=== PATIENT | female | born 1990 | race Caucasian/White ===

== ENCOUNTER 2017-01-20 05:26 | Day surgery (SDC) | payer MEDICAID ==
--- NOTE | 2017-01-16 08:34 | PDGENHP ---
History and Physical - Chief Complaint Left Hip Pain - History of Present Illness 1. Bilateral~Femoroacetabular impingement (JOSE J) Cam type~(Right Side symptomatic) 2. ~~Borderline Left Hip Dysplasia (Asymptomatic) HISTORY OF PRESENT ILLNESS: Monalisais a 25 y.o.~very ~active female~who I have had the pleasure to consult on today.~I have enjoyed meeting her. She~lives in [place]. ~Monalisais unemployed (she is currently applying for disability). ~She~is single; she~has no~children. ~Monalisaenjoys horse back riding, bicycling, white water rafting, bouldering (while living [place]) . At age 19 she weighed~330 lbs and has lost 150 lb since that time. Susan's right~hip pain started a year ago, with no~recalled trauma or injury, and with no~previous complaints.~Monalisadoes not have~a known history of hip dysplasia. She has had a year of pelvic floor pain and has had a large work up including laparotomy with negative findings for endometriosis. Presentation today is of~posterior, lateral right~hip pain. ~The hip does~wake her~at night and does~click and catch on her. Sitting can be uncomfortable~for her. Monalisadoes~report suffering from lower back pain episodes which started after her hip pain. She experiences waves of pain with associated nausea, sweating anywhere from 5- 15 times a day. Monalisahas~participated in physical therapy (for pelvic floor pain)~and has~ tried other conservative measures including cortisone hip injections (November 2015 at [facility]) which only gave her 1.5 days relief however she had immediate 85% pain relief, dry needling . She~has not~received sufficient symptomatic improvement. Monalisahas~utilized medication for pain management, including NSAID and Medical Marijuana. Monalisahas used medication for 1 year. Monalisadenies issues with the right~hip. ~ Monalisaunderstands that she~has a hip and pelvis problem which should be researched and wishes to get a better understanding of her~hip status, followed by an establishment of a treatment strategy, hoping she~would be able to get back to her~well being active life. History: Past medical history: ~ None which is relevant Relevant familial history: Cancer on both sides of the family ~~~~~~~~~~~~~~~~~~~~~~~~~~~~~~~~~~~~HTN ~~~~~~~~~~~~~~~~~~~~~~~~~~~~~~~~~~~~ALS Past surgical history: No. Surgery Anesthesia Year Outcome 1 Laparoscopic Pelvic surgey General 2 Ovarian mass excision General Monalisadenies problematic issues with general anesthesia in the past. I have reviewed, verified and agree with the past medical, surgical, family and social history. Current Medications:~currently has no medications in their medication list. ALLERGIES:~has no allergies on file. Objective: Physical Examination: Monalisais 5~feet 7~inches tall and weighs~180~Lbs. Monalisais AAO x3; she~is well-nourished, in NAD. Skin is warm and dry. ~Breathing is non-labored. ~CV with RRR by pulse. Abdomen is soft, NTND. Currently, she~walks with a normal~gait. Trendelenburg sign is negative~and proprioception~is reduced, both~sides. She~presents~with mild~signs of joint laxity.~Beightons Score: 3 Lower spine examination is negative~for sciatic or femoral nerve irritation with positive~SLR on the Right~and Negative femoral stretch tests. Range of motion of the spine is normal~for flexion, extension, and rotations, with no~ associated pain. Upper T-Spine tenderness over the spinous process, L-Spine paraspinal tenderness. Strength, Sensation and pulses are normal - bilaterally Ankles and knees exams are normal~and no~mal-alignment is evident. She~has~right~0.5~cm short leg length discrepancy. Thigh circumference is symmetric~with no evidence for muscle atrophy~on both~ sides. Hip ROM (degrees): FL ER At 90~hip FL IR At 90~hip FL AB AD EX IR Neutral hip ER Neutral hip R 105 55 10 45 10 5 45 45 L 105 55 10 45 5 5 45 50 Specific hip and pelvis tests: Quadrant TEA Roll Add. Longus R +++ +++ Negative +++ L + + Negative +++ Glut. Med ITB Pos. Imp R +++ 5/5 strength Negative 5/5 strength Negative L Negative 5/5 strength Negative 5/5 strength Negative Squeeze test measured normal Bony Symphysis pubis is painful~to touch while concentric activity of the rectus abdominis, does not~produce pain at its insertion. Ilio Psos specific tests are negative for pain during cycling for both hips~and no snap Anterior~capsule tenderness bilaterally R>L Greater trochanteric burse is pain free~on both hips. Piriformis tests: FAIR is negative, with no~local signs of neuritis related to sciatic nerve. SIJs examination is produces pain on right side~with normal~TEA in relation and local tenderness. Hamstrings~tests are negative~functional contraction and~positive~tendinopathy on the Right On a daily basis, the following percentages reflect Susan's overall total pain : Deep hip: 80% Add Longus: 10% Hamstrin% Imaging: Radiology studies which I~have personally reviewed, analyzed and measured are below: XR: AP of the hip and pelvis: Performed in a good~technique Coccyx to pubic symphysis distance 2~cm. 6 degree~caudal [place]~Lines are preserved. Minimal~Pathological signs are seen in the Symphysis Pubis. Minimal~Pathological signs are seen at the Ischial~tuberosity. ~ Specific measurements show: NSA~ LCE Sourcil~Angle Sharp's angle Lat. Cam Lat. Pincer C.Over~sign Head~Coverage % ATDmm R N 31 3 40 - - - 80 N L N 22 10 43 - - 12-1 70 N Pos. wall sign ISS NAD ~~Dysplasia Comments R + Negative 18.6~mm - L + Negative 11.6~mm ++ Sclerosis Sup. Lat. OA Cysts Joint Space-WBZ Joint Space-Medial R Negative Negative Negative 5.8~mm 4.8~mm L Negative Negative Negative 6.6~mm 4.8~mm X Table lateral: Anterior cam lesion is seen Alpha Angle: ~ Right sub optimal XR to assess Alpha accurately, will base off 3D-CT Left 70~degrees MRI shows: minimal hypertrophy of the labrum in right hip with labral tear Impression and plan:~ Susan~is a 25 y.o.~active female~suffering from symptomatic right~hip pain due to Right cam type JOSE J with labral tear causing significant disability to her ~and altering~her~sport and life activities. Physical examination, imaging, and her~story correspond with the diagnosis mentioned above. I explained that femoroacetabular impingement (JOSE J) arises due to a bony or soft tissue conflict between the femur (ball) and acetabulum (socket) caused by an abnormality in the shape of the hip joint. Over time, repetitive impingement can result in damage to the labrum and adjacent surface cartilage within the socket, ultimately giving rise to progressive osteoarthritis of the hip. I explained that although a labral tear can be a source of pain, it is rarely the root of the problem and typically occurs secondary to an underlying abnormality in the shape and mechanics of the hip joint. ~ I reviewed conservative treatment options for JOSE J including activity modification to avoid positions of impingement, physical therapy, non-steroidal anti-inflammatory medications, and various injections (corticosteroid and PRP) aimed at reducing inflammation in the hip joint or/and preventing dynamic impingement. PRP injections may promote healing and reduce symptoms in certain cases but it will not repair chronically damaged tissue. Although these measures may help to buy time~and reduce current level of symptoms, they are not a definitive solution to the problem given the underlying abnormality in the shape of the hip joint. Patients who have failed conservative management and continue to experience symptoms are candidates for hip arthroscopy, a minimally invasive surgery that can definitively address the underlying problem. Hip arthroscopy typically includes treating the labrum with either debridement, repair, or reconstruction of the torn labrum; as well as addressing the underlying abnormalities by restoring the normal shape to the hip joint. ~If the cartilage is damaged a Microfracture~surgical procedure may also be necessary to help stimulate the growth of fibrocartilage. ~If a patient requires a labral reconstruction or a Microfracture, the initial rehabilitation from the surgery may take longer, but the half-way results are typically favorable. I reviewed the technical aspects of hip arthroscopy including risks, benefits, and expected course of recovery. Susan~understands that hip arthroscopy is a minimally invasive outpatient procedure carried out through small incisions on the outer aspect of the hip joint. During surgery, the labral tear will be identified and either debrided or repaired using bone anchors and suture material. Additionally, any excessive bone will be removed with a high-speed leonides to reshape the hip joint and restore normal anatomy. Risks include infection, bleeding, injury to nearby nerves or vessels, stiffness, persistent pain, instability, venous thromboembolic disease, and traction related complications including temporary foot numbness. Rarely, revision surgery may be required to address these problems. Overall recovery takes approximately 3 ~ 6 months depending on the extent of damage and degree of repair. In the event that the labral tissue quality is inadequate for successful repair and healing, Monalisaunderstands that a labral reconstruction will be performed. This procedure entails placing a cadaver tissue graft within the hip joint and stabilizing it with bone anchors to build a new labrum. The overall recovery time for labral reconstruction is similar to that of labral repair, although the surgical procedure takes longer to perform. Monalisawill review the info presented. In order to obtain more detailed information regarding the alignment, orientation, and shape of the bony hip and pelvis I will order a CT scan to be performed. The results of the CT scan, including femoral torsion and acetabular version measured values and 3D images, will aid me in deciding on the best treatment strategy and surgical pre-planning. Monalisawill talk with our rn surgical about possible surgery dates. Monalisais happy with this plan. I have also supplied her~with handouts, outlining the expected surgical treatment and rehab involved. I wish~Monalisaall the best, ~~ Juan Melgar [facility] History Information - Allergies/Home Medication List Allergies/Adverse Reactions: No Known Allergies Allergy (Verified 12/19/16 11:35) Home Medications: Norethindrone Acetate [Aygestin 5mg (RX)] 5 mg PO DAILY 12/19/16 [Last Taken Unknown] buPROPion XL [Wellbutrin Xl] 300 mg PO DAILY 12/19/16 [Last Taken Unknown] Levonorgestrel-Ethin Estradiol [Lessina] 1 each PO DAILY 01/14/17 [Last Taken Unknown] Melatonin [Melatonin 3 MG (*)] 3 mg PO HS PRN 01/14/17 [Last Taken Unknown] I have personally reviewed and updated: medical history - Social History Smoking Status: Light smoker Review of Systems Review of Systems: Physical Exam Physical Exam:
[2017-01-20] MEDS ORDERED: ceFAZolin 2 GM/DEXTROSE 100 ML IV ONE (05:34)
[2017-01-20] MEDS ORDERED: PREGABALIN 150 MG CAP PO ONE (05:34)
[2017-01-20] MEDS ORDERED: ACETAMINOPHEN 500 MG TAB PO ONE (05:34)
[2017-01-20] MEDS ORDERED: LIDOCAINE 1% 2 ML INJ ID PRN (06:51)
[2017-01-20] MEDS ORDERED: LR 1,000 ML IV ONE (06:51)
[2017-01-20] MEDS ORDERED: BUPIVACAINE 0.25% 30 ML SDV ONE (07:04)
[2017-01-20] MEDS ORDERED: MIDAZOLAM 2 MG/2 ML VIAL IVP ONE (07:12)
[2017-01-20] MEDS ORDERED: SCOPOLAMINE HYDROBROMIDE 1 MG/3 DAYS PATCH TD ONE (07:12)
--- NOTE | 2017-01-20 07:14 | PDANEPAE ---
ANE History of Present Illness Patient presents for L hip scope ANE Past Medical History - Cardiovascular History Hx Hypertension: No Hx Arrhythmias: No Hx Chest Pain: No Hx Coronary Artery / Peripheral Vascular Disease: No Hx CHF / Valvular Disease: No Hx Palpitations: No - Pulmonary History Hx COPD: No Hx Asthma/Reactive Airway Disease: Yes Hx Recent Upper Respiratory Infection: No Hx Oxygen in Use at Home: No Hx Sleep Apnea: No Sleep Apnea Screening Result - Last Documented: Negative Pulmonary History Comment: EXERCISE INDUCED ASTHMA IN PAST - Neurologic History Hx Cerebrovascular Accident: No Hx Seizures: No Hx Dementia: No - Endocrine History Hx Diabetes: No - Renal History Hx Renal Disorders: No - Liver History Hx Hepatic Disorders: No - Neurological & Psychiatric Hx Hx Neurological and Psychiatric Disorders: No - Cancer History Hx Cancer: No - Congenital Disorder History Hx Congenital Disorders: No - GI History Hx Gastrointestinal Disorders: No - Other Health History Other Health History: wears glasses - Chronic Pain History Chronic Pain: Yes (left hip pain) - Surgical History Prior Surgeries: 01/20/17 left hip arthroscopy and labral repair with Amna-Kp. 04/09/16 right hip arthroscopy and labral repair with Amna-Kp. WISDOM TEETH. TONSILLECTOMY. SALPINGO-OOPHERECTOMY L. LAPAROSCOPIC OVARIAN PROC ANE Review of Systems Review of Systems: - Exercise capacity METS (RN): 4 METS ANE Patient History - Allergies Allergies/Adverse Reactions: No Known Allergies Allergy (Verified 12/19/16 11:35) - Home Medications Home medications: home medication list seen and reviewed Home Medications: Norethindrone Acetate [Aygestin 5mg (RX)] 5 mg PO DAILY 12/19/16 [Last Taken Unknown] buPROPion XL [Wellbutrin Xl] 300 mg PO DAILY 12/19/16 [Last Taken Unknown] Levonorgestrel-Ethin Estradiol [Lessina] 1 each PO DAILY 01/14/17 [Last Taken Unknown] Melatonin [Melatonin 3 MG (*)] 3 mg PO HS PRN 01/14/17 [Last Taken Unknown] - NPO status NPO Status: no food or drink >8 hours NPO Since - Liquids (Date): 01/19/17 NPO Since - Liquids (Time): 20:00 NPO Since - Solids (Date): 01/19/17 NPO Since - Solids (Time): 19:00 - Anes Hx Anes Hx: no prior problems - Smoking Hx Smoking Status: Light smoker - Family Anes Hx Family Hx Anesthesia Complications: none ANE Labs/Vital Signs - Vital Signs Blood Pressure: 105/57 Heart Rate: 105 Respiratory Rate: 16 O2 Sat (%): 96 Height: 170.18 cm Weight: 77.111 kg ANE Physical Exam - Airway Neck exam: FROM Mallampati Score: Class 2 Mouth exam: normal dental/mouth exam - Pulmonary Pulmonary: no respiratory distress - Cardiovascular Cardiovascular: regular rate and rhythym - ASA Status ASA Status: II ANE Anesthesia Plan Anesthesia Plan: general endotracheal anesthesia (RBA discussed)
[2017-01-20] MEDS ORDERED: fentaNYL 100 MCG/2 ML INJ ONE ×5 (07:18→13:20)
[2017-01-20] MEDS ORDERED: PROPOFOL 200 MG/20 ML VIAL ONE (07:19)
[2017-01-20] MEDS ORDERED: LIDOCAINE 2% 5 ML SDV ONE (07:19)
[2017-01-20] MEDS ORDERED: ROCURONIUM 50 MG/5 ML VIAL ONE (07:19)
[2017-01-20] MEDS ORDERED: PROPOFOL/EMULSION 500 MG/50 ML BOTTLE IV ONE ×2 (07:23→08:38)
[2017-01-20] MEDS ORDERED: DEXAMETHASONE 4 MG/ML VIAL ONE (08:12)
[2017-01-20] MEDS ORDERED: ONDANSETRON 4 MG/2 ML VIAL ONE (08:13)
[2017-01-20] MEDS ORDERED: HYDROmorphONE/DILAUDID 2 MG/ML INJ ONE (08:31)
[2017-01-20] MEDS ORDERED: EPINEPHrine 30 MG/30 ML MDV ONE (09:21)
[2017-01-20] MEDS ORDERED: LR 500 ML IV PRN (10:23)
[2017-01-20] MEDS ORDERED: ONDANSETRON 4 MG/2 ML VIAL IVP PRN (10:23)
[2017-01-20] MEDS ORDERED: NALOXONE HCL 0.4 MG/ML INJ IVP PRN (10:23)
[2017-01-20] MEDS ORDERED: OXYCODONE/APAP 5/325 TAB PO PRN (10:23)
[2017-01-20] MEDS ORDERED: HYDROCODONE/APAP 5/325 TAB PO PRN (10:23)
[2017-01-20] MEDS ORDERED: PROMETHAZINE HCL 25 MG/ML INJ IVP PRN (10:23)
[2017-01-20] MEDS ORDERED: HYDROmorphONE/DILAUDID 1 MG/ML INJ ONE (11:20)
[2017-01-20] MEDS: fentaNYL 100 MCG/2 ML INJ IVP PRN ×5 (11:25→13:23)
[2017-01-20] MEDS: HYDROmorphONE/DILAUDID 1 MG/ML INJ IVP PRN ×3 (11:26→11:55)
--- NOTE | 2017-01-20 11:50 | POSTANESTH ---
Post Anesthetic Evaluation Cardiovascular Status: Normal, Stable Respiratory Status: Normal, Stable Level of Consciousness/Mental Status: Can Participate in Eval Pain Control: Adequate, Prn Tx Ordered Nausea/Vomiting Control: Adequate, Prn Tx Ordered Complications Possibly Related to Anesthesia: None Noted
[2017-01-20] MEDS ORDERED: OXYCODONE/APAP 5/325 TAB ONE (12:04)
[2017-01-20 12:14] VITALS: PULSE 77
[2017-01-20] MEDS ORDERED: HYDROmorphONE/DILAUDID 2 MG TAB PO PRN (13:46)
[2017-01-20 13:48] VITALS: TEMP 97.9; O2SAT 94
[2017-01-20] MEDS ORDERED: HYDROmorphONE/DILAUDID 2 MG TAB ONE (13:51)
[2017-01-20 14:06] VITALS: BP 113/62; RESP 15
[2017-01-21] MEDS ORDERED: PATCH REMOVAL 1 EA PATCH TD ONE (09:00)
== END 2017-01-20 14:14 | disposition home or self-care (01) ==
LOC: FSGY 05:26
PROVIDERS: ATTEND Orthopaedic Surgery Sports Medicine
PROC: 0SQB4ZZ Repair Left Hip Joint, Percutaneous Endoscopic Approach (ICD-10-PCS; principal; 2017-01-20 11:30)
DX: M25.851 Other specified joint disorders, right hip (principal); M25.852 Other specified joint disorders, left hip; Z72.0 Tobacco use; J45.909 Unspecified asthma, uncomplicated
CPT/HCPCS: 29914; 76001; C1769; C1713; J0171; J0690; J1100; J1170; J2250; J2405; J2704; J3010

== ENCOUNTER 2017-01-27 06:42 | Inpatient (IN) | payer MEDICAID ==
--- NOTE | 2017-01-23 16:02 | PDGENHP ---
History and Physical - Chief Complaint Left Hip Pain - History of Present Illness 1. Bilateral~Femoroacetabular impingement (JOSE J) Cam type~(Right Side symptomatic) 2. ~~Borderline Left Hip Dysplasia (Asymptomatic) HISTORY OF PRESENT ILLNESS: Monalisais a 25 y.o.~very ~active female~who I have had the pleasure to consult on today.~I have enjoyed meeting her. She~lives in [place]. ~Monalisais unemployed (she is currently applying for disability). ~She~is single; she~has no~children. ~Monalisaenjoys horse back riding, bicycling, white water rafting, bouldering (while living [place]) . At age 19 she weighed~330 lbs and has lost 150 lb since that time. Susan's right~hip pain started a year ago, with no~recalled trauma or injury, and with no~previous complaints.~Monalisadoes not have~a known history of hip dysplasia. She has had a year of pelvic floor pain and has had a large work up including laparotomy with negative findings for endometriosis. Presentation today is of~posterior, lateral right~hip pain. ~The hip does~wake her~at night and does~click and catch on her. Sitting can be uncomfortable~for her. Monalisadoes~report suffering from lower back pain episodes which started after her hip pain. She experiences waves of pain with associated nausea, sweating anywhere from 5- 15 times a day. Monalisahas~participated in physical therapy (for pelvic floor pain)~and has~ tried other conservative measures including cortisone hip injections (November 2015 at [facility]) which only gave her 1.5 days relief however she had immediate 85% pain relief, dry needling . She~has not~received sufficient symptomatic improvement. Monalisahas~utilized medication for pain management, including NSAID and Medical Marijuana. Monalisahas used medication for 1 year. Monalisadenies issues with the right~hip. ~ Monalisaunderstands that she~has a hip and pelvis problem which should be researched and wishes to get a better understanding of her~hip status, followed by an establishment of a treatment strategy, hoping she~would be able to get back to her~well being active life. History: Past medical history: ~ None which is relevant Relevant familial history: Cancer on both sides of the family ~~~~~~~~~~~~~~~~~~~~~~~~~~~~~~~~~~~~HTN ~~~~~~~~~~~~~~~~~~~~~~~~~~~~~~~~~~~~ALS Past surgical history: No. Surgery Anesthesia Year Outcome 1 Laparoscopic Pelvic surgey General 2 Ovarian mass excision General Monalisadenies problematic issues with general anesthesia in the past. I have reviewed, verified and agree with the past medical, surgical, family and social history. Current Medications:~currently has no medications in their medication list. ALLERGIES:~has no allergies on file. Objective: Physical Examination: Monalisais 5~feet 7~inches tall and weighs~180~Lbs. Monalisais AAO x3; she~is well-nourished, in NAD. Skin is warm and dry. ~Breathing is non-labored. ~CV with RRR by pulse. Abdomen is soft, NTND. Currently, she~walks with a normal~gait. Trendelenburg sign is negative~and proprioception~is reduced, both~sides. She~presents~with mild~signs of joint laxity.~Beightons Score: 3 Lower spine examination is negative~for sciatic or femoral nerve irritation with positive~SLR on the Right~and Negative femoral stretch tests. Range of motion of the spine is normal~for flexion, extension, and rotations, with no~ associated pain. Upper T-Spine tenderness over the spinous process, L-Spine paraspinal tenderness. Strength, Sensation and pulses are normal - bilaterally Ankles and knees exams are normal~and no~mal-alignment is evident. She~has~right~0.5~cm short leg length discrepancy. Thigh circumference is symmetric~with no evidence for muscle atrophy~on both~ sides. Hip ROM (degrees): FL ER At 90~hip FL IR At 90~hip FL AB AD EX IR Neutral hip ER Neutral hip R 105 55 10 45 10 5 45 45 L 105 55 10 45 5 5 45 50 Specific hip and pelvis tests: Quadrant TEA Roll Add. Longus R +++ +++ Negative +++ L + + Negative +++ Glut. Med ITB Pos. Imp R +++ 5/5 strength Negative 5/5 strength Negative L Negative 5/5 strength Negative 5/5 strength Negative Squeeze test measured normal Bony Symphysis pubis is painful~to touch while concentric activity of the rectus abdominis, does not~produce pain at its insertion. Ilio Psos specific tests are negative for pain during cycling for both hips~and no snap Anterior~capsule tenderness bilaterally R>L Greater trochanteric burse is pain free~on both hips. Piriformis tests: FAIR is negative, with no~local signs of neuritis related to sciatic nerve. SIJs examination is produces pain on right side~with normal~TEA in relation and local tenderness. Hamstrings~tests are negative~functional contraction and~positive~tendinopathy on the Right On a daily basis, the following percentages reflect Susan's overall total pain : Deep hip: 80% Add Longus: 10% Hamstrin% Imaging: Radiology studies which I~have personally reviewed, analyzed and measured are below: XR: AP of the hip and pelvis: Performed in a good~technique Coccyx to pubic symphysis distance 2~cm. 6 degree~caudal [place]~Lines are preserved. Minimal~Pathological signs are seen in the Symphysis Pubis. Minimal~Pathological signs are seen at the Ischial~tuberosity. ~ Specific measurements show: NSA~ LCE Sourcil~Angle Sharp's angle Lat. Cam Lat. Pincer C.Over~sign Head~Coverage % ATDmm R N 31 3 40 - - - 80 N L N 22 10 43 - - 12-1 70 N Pos. wall sign ISS NAD ~~Dysplasia Comments R + Negative 18.6~mm - L + Negative 11.6~mm ++ Sclerosis Sup. Lat. OA Cysts Joint Space-WBZ Joint Space-Medial R Negative Negative Negative 5.8~mm 4.8~mm L Negative Negative Negative 6.6~mm 4.8~mm X Table lateral: Anterior cam lesion is seen Alpha Angle: ~ Right sub optimal XR to assess Alpha accurately, will base off 3D-CT Left 70~degrees MRI shows: minimal hypertrophy of the labrum in right hip with labral tear Impression and plan:~ Susan~is a 25 y.o.~active female~suffering from symptomatic right~hip pain due to Right cam type JOSE J with labral tear causing significant disability to her ~and altering~her~sport and life activities. Physical examination, imaging, and her~story correspond with the diagnosis mentioned above. I explained that femoroacetabular impingement (JOSE J) arises due to a bony or soft tissue conflict between the femur (ball) and acetabulum (socket) caused by an abnormality in the shape of the hip joint. Over time, repetitive impingement can result in damage to the labrum and adjacent surface cartilage within the socket, ultimately giving rise to progressive osteoarthritis of the hip. I explained that although a labral tear can be a source of pain, it is rarely the root of the problem and typically occurs secondary to an underlying abnormality in the shape and mechanics of the hip joint. ~ I reviewed conservative treatment options for JOSE J including activity modification to avoid positions of impingement, physical therapy, non-steroidal anti-inflammatory medications, and various injections (corticosteroid and PRP) aimed at reducing inflammation in the hip joint or/and preventing dynamic impingement. PRP injections may promote healing and reduce symptoms in certain cases but it will not repair chronically damaged tissue. Although these measures may help to buy time~and reduce current level of symptoms, they are not a definitive solution to the problem given the underlying abnormality in the shape of the hip joint. Patients who have failed conservative management and continue to experience symptoms are candidates for hip arthroscopy, a minimally invasive surgery that can definitively address the underlying problem. Hip arthroscopy typically includes treating the labrum with either debridement, repair, or reconstruction of the torn labrum; as well as addressing the underlying abnormalities by restoring the normal shape to the hip joint. ~If the cartilage is damaged a Microfracture~surgical procedure may also be necessary to help stimulate the growth of fibrocartilage. ~If a patient requires a labral reconstruction or a Microfracture, the initial rehabilitation from the surgery may take longer, but the [facility] results are typically favorable. I reviewed the technical aspects of hip arthroscopy including risks, benefits, and expected course of recovery. Susan~understands that hip arthroscopy is a minimally invasive outpatient procedure carried out through small incisions on the outer aspect of the hip joint. During surgery, the labral tear will be identified and either debrided or repaired using bone anchors and suture material. Additionally, any excessive bone will be removed with a high-speed leonides to reshape the hip joint and restore normal anatomy. Risks include infection, bleeding, injury to nearby nerves or vessels, stiffness, persistent pain, instability, venous thromboembolic disease, and traction related complications including temporary foot numbness. Rarely, revision surgery may be required to address these problems. Overall recovery takes approximately 3 ~ 6 months depending on the extent of damage and degree of repair. In the event that the labral tissue quality is inadequate for successful repair and healing, Monalisaunderstands that a labral reconstruction will be performed. This procedure entails placing a cadaver tissue graft within the hip joint and stabilizing it with bone anchors to build a new labrum. The overall recovery time for labral reconstruction is similar to that of labral repair, although the surgical procedure takes longer to perform. Monalisawill review the info presented. In order to obtain more detailed information regarding the alignment, orientation, and shape of the bony hip and pelvis I will order a CT scan to be performed. The results of the CT scan, including femoral torsion and acetabular version measured values and 3D images, will aid me in deciding on the best treatment strategy and surgical pre-planning. Monalisawill talk with our surgical oncologist about possible surgery dates. Monalisais happy with this plan. I have also supplied her~with handouts, outlining the expected surgical treatment and rehab involved. I wish~Monalisaall the best, ~~ Juan Melgar, [facility] History Information - Allergies/Home Medication List Allergies/Adverse Reactions: No Known Allergies Allergy (Verified 12/19/16 11:35) Home Medications: Norethindrone Acetate [Aygestin] 5 mg PO DAILY 12/19/16 [Last Taken Unknown] buPROPion XL [Wellbutrin 150mg XL] 300 mg PO DAILY 12/19/16 [Last Taken Unknown] Levonorgestrel-Ethin Estradiol [Lessina-28 Tablet] 1 each PO DAILY 01/14/17 [ Last Taken Unknown] Melatonin [Melatonin 3 MG (*)] 3 mg PO HS PRN 01/14/17 [Last Taken Unknown] I have personally reviewed and updated: medical history - Social History Smoking Status: Light smoker Review of Systems Review of Systems: Physical Exam Physical Exam:
[2017-01-27] MEDS ORDERED: LIDOCAINE 1% 2 ML INJ ID PRN (07:34)
[2017-01-27] MEDS ORDERED: LR 1,000 ML IV ONE (07:34)
[2017-01-27] MEDS ORDERED: MIDAZOLAM 2 MG/2 ML VIAL IVP ONE (07:54)
[2017-01-27] MEDS ORDERED: SCOPOLAMINE HYDROBROMIDE 1 MG/3 DAYS PATCH TD ONE ×2 (08:17→08:34)
--- NOTE | 2017-01-27 08:18 | PDANEPAE ---
ANE Past Medical History - Cardiovascular History Hx Hypertension: No Hx Arrhythmias: No Hx Chest Pain: No Hx Coronary Artery / Peripheral Vascular Disease: No Hx CHF / Valvular Disease: No Hx Palpitations: No - Pulmonary History Hx COPD: No Hx Asthma/Reactive Airway Disease: Yes Hx Recent Upper Respiratory Infection: No Hx Oxygen in Use at Home: No Hx Sleep Apnea: No Sleep Apnea Screening Result - Last Documented: Negative Pulmonary History Comment: EXERCISE INDUCED ASTHMA IN PAST - Neurologic History Hx Cerebrovascular Accident: No Hx Seizures: No Hx Dementia: No - Endocrine History Hx Diabetes: No Hypothyroid: No Hyperthyroid: No Obesity: no - Renal History Hx Renal Disorders: No - Liver History Hx Hepatic Disorders: No - Neurological & Psychiatric Hx Hx Neurological and Psychiatric Disorders: No - Cancer History Hx Cancer: No - Congenital Disorder History Hx Congenital Disorders: No - GI History GERD: no Hx Gastrointestinal Disorders: No - Other Health History Other Health History: wears glasses - Chronic Pain History Chronic Pain: Yes (left hip pain) - Surgical History Prior Surgeries: 01/20/17 left hip arthroscopy and labral repair with Amna-Kp. 04/09/16 right hip arthroscopy and labral repair with Amna-Kp. WISDOM TEETH. TONSILLECTOMY. SALPINGO-OOPHERECTOMY L. LAPAROSCOPIC OVARIAN PROC ANE Review of Systems Review of Systems: - Exercise capacity METS (RN): 4 METS ANE Patient History - Allergies Allergies/Adverse Reactions: No Known Allergies Allergy (Verified 12/19/16 11:35) - Home Medications Home Medications: Norethindrone Acetate [Aygestin] 5 mg PO DAILY 12/19/16 [Last Taken Unknown] buPROPion XL [Wellbutrin 150mg XL] 300 mg PO DAILY 12/19/16 [Last Taken Unknown] Levonorgestrel-Ethin Estradiol [Lessina-28 Tablet] 1 each PO DAILY 01/14/17 [ Last Taken Unknown] Melatonin [Melatonin 3 MG (*)] 3 mg PO HS PRN 01/14/17 [Last Taken Unknown] - NPO status NPO Since - Liquids (Date): 01/26/17 NPO Since - Liquids (Time): 21:00 NPO Since - Solids (Date): 01/26/17 NPO Since - Solids (Time): 21:00 - Anes Hx Anes Hx: post operative nausea - Smoking Hx Smoking Status: Light smoker - Family Anes Hx Family Anes Hx: neg - N/A Family Hx Anesthesia Complications: none ANE Labs/Vital Signs - Vital Signs Blood Pressure: 123/59 Heart Rate: 84 Respiratory Rate: 16 O2 Sat (%): 96 Height: 170.18 cm Weight: 77.111 kg ANE Physical Exam - Airway Neck exam: FROM Mallampati Score: Class 2 Mouth exam: normal dental/mouth exam - Pulmonary Pulmonary: no respiratory distress - Cardiovascular Cardiovascular: regular rate and rhythym - ASA Status ASA Status: II ANE Anesthesia Plan Anesthesia Plan: general endotracheal anesthesia (Epidural for POPC)
[2017-01-27] MEDS ORDERED: REMIFENTANIL HCL 1 MG VIAL ONE ×2 (08:19→10:53)
[2017-01-27] MEDS ORDERED: DEXAMETHASONE 4 MG/ML VIAL ONE (08:19)
[2017-01-27] MEDS ORDERED: PROPOFOL/EMULSION 500 MG/50 ML BOTTLE IV ONE ×2 (08:19→10:53)
[2017-01-27] MEDS ORDERED: PROPOFOL 200 MG/20 ML VIAL ONE (08:19)
[2017-01-27] MEDS ORDERED: ROCURONIUM 50 MG/5 ML VIAL ONE ×3 (08:19→10:50)
[2017-01-27] MEDS ORDERED: ONDANSETRON 4 MG/2 ML VIAL ONE (08:19)
[2017-01-27] MEDS ORDERED: fentaNYL 100 MCG/2 ML INJ ONE ×3 (08:19→13:19)
[2017-01-27] MEDS ORDERED: LIDOCAINE 2% 5 ML SDV ONE (08:20)
[2017-01-27] MEDS: SCOPOLAMINE HYDROBROMIDE 1 MG/3 DAYS PATCH TD SCH (08:20)
[2017-01-27] MEDS ORDERED: ceFAZolin 2 GM/DEXTROSE 100 ML IV ONE (08:34)
[2017-01-27] MEDS ORDERED: TRANEXAMIC ACID 1,000 MG in NS 100 ML IV ONE (08:34)
[2017-01-27] MEDS ORDERED: MELATONIN 3 MG TAB PO PRN (08:35)
[2017-01-27] MEDS ORDERED: PHENYLEPHRINE HCL 100 MCG/ML SYR ONE (08:56)
[2017-01-27] MEDS ORDERED: CEFAZOLIN 2 GM/DEXTROSE/100 ML BAG IV ONE (08:59)
[2017-01-27] MEDS ORDERED: ONDANSETRON 4 MG/2 ML VIAL IVP PRN ×2 (09:59→15:08)
[2017-01-27] MEDS ORDERED: PROMETHAZINE HCL 25 MG/ML INJ IVP PRN (09:59)
[2017-01-27] MEDS ORDERED: D5W LR 500 ML IV PRN (09:59)
[2017-01-27] MEDS ORDERED: NALOXONE HCL 0.4 MG/ML INJ IVP PRN ×2 (09:59→11:00)
[2017-01-27] MEDS ORDERED: MEPERIDINE 25 MG/ML SYR IVP PRN (09:59)
[2017-01-27] MEDS ORDERED: NARCOTIC DRIP BAG-TOTAL ALL TYPES EP PRN (11:00)
[2017-01-27] MEDS ORDERED: diphenhydrAMINE 25 MG CAP PO PRN (11:00)
[2017-01-27] MEDS ORDERED: SUGAMMADEX SODIUM 200 MG/2 ML VIAL IVP ONE (12:38)
[2017-01-27] MEDS ORDERED: ROPIVACAINE HCL 150 MG/30 ML INJ ONE (13:19)
[2017-01-27] MEDS: HYDROmorph 10MCG/ML&BUP 0.1% in 100ML NS EP SCH ×2 (13:55→21:29)
[2017-01-27] MEDS: buPROPion XL 150 MG TAB PO SCH (14:56)
[2017-01-27] MEDS: LEVONORGESTREL ETHIN ESTRADIOL PO SCH (14:57)
[2017-01-27] MEDS: NORETHINDRONE ACET 5 MG TAB PO SCH (14:57)
[2017-01-27] MEDS ORDERED: POLYETHYLENE GLYCOL 3350 17 GM PKT PO PRN (15:08)
[2017-01-27] MEDS ORDERED: LACTULOSE 20 GM/30 ML UDCUP PO PRN (15:08)
[2017-01-27] MEDS ORDERED: ONDANSETRON DISINTEGRATING 4 MG TAB PO PRN (15:08)
[2017-01-27] MEDS ORDERED: BISACODYL 10 MG SUPP PR PRN (15:08)
[2017-01-27] MEDS: ONDANSETRON 4 MG/2 ML VIAL IVP PRN ×2 (15:42→20:50)
[2017-01-27] MEDS: ACETAMINOPHEN 325 MG TAB PO PRN (17:34)
[2017-01-27] MEDS: DIAZEPAM 2 MG TAB PO PRN (17:34)
[2017-01-27] MEDS: SENNOSIDES/DOCUSATE SODIUM TAB PO SCH (20:50)
--- NOTE | 2017-01-27 21:33 | SUROPNOTE ---
ENRIKE Operative Report - Surgery Surgery was performed at [facility] 01/27/17 Diagnosis: Left 1. Hip Acetabular Dysplasia Operation: Left~Gena Acetabular Osteotomy (PHANI) Surgeon: Ge Alexandra MD [employer] Hand:~~Dane FIGUEROA Anesthetic: General + epidural Procedure: General anesthetic. Antibiotics given. Cell saver in use. Fluoroscopy. Phase 1: Position lateral, diagonal skin incision between ischial tuberosity and greater trochanter as for posterior hip approach. Blunt split of glut max fibers. Identification of fat pad overlying sciatic nerve. Exposure of sciatic nerve under fat pad, gently retracting it away-medially to ischial tuberosity. Exposure of subcotoloid fossa proximal to short rotators. Using osteotomes and under fluoroscopy, osteotomy of subcotoloid fossa to sciatic notch proximal to ischial spine. Closure of lateral cut. Patient is turned supine. Phase 2: Skin incision just distal to ASIS. Using diathermy the iliac spine was exposed and inguinal ligament + Sartorious were retracted medially, taking the LFCN with them, protecting it. Inner ilium was dissected from iliacus muscle bluntly , with a cob and swab. Dissection continued towards lateral superior ramus pubis. Using fluoroscopy an osteotomy of lateral superior ramus, just medial to tear drop, was performed with curved fish mouth osteotome. Phase 3: Osteotomy lines of the ilium were marked with diathermy as pre planned according to XR/CT and expected correction of acatabulum. 2 Shanz screws were drilled into central acetabular fragment, corresponding with planned correction angles, in order to mobilize central acetabular fragment after osteotomy is complete. ~Iliac osteotomy was performed with reciprocating saw and the main acetabular fragment was moved to realign weight bearing position. After confirmation of correction using fluoroscopy in AP and false profile planes, the fragment was fixed with 2 - 5.5mm ~full threaded~screws~and 1 - 4mm~~full threaded~screw. Inguinal ligament and Sartorious were attached back to ASIS through drill holes. Incision was closed according to soft tissue layers. Skin was closed with subdermal Monocryl. Final fluoro shots were obtained to confirm position/correction. After surgery Susan~moved both lower limbs and had no NV motor compromise. Evaluation under anesthesia: IR at 90 degrees hip flexion prior to PHANI was 20~degrees and after PHANI was 15~ degrees. Bleedin~cc into cell-saver, 135~of blood products were returned to patient. Post op instructions: 1. Non~weight bearing crutches for 2~weeks, full with crutches thereafter 2. Epidural analgesia for 24-48 hours 3. Continuous SCD 4. Aspirin 81 mg X1 day once Epidural is discontinued 5. Avoid hip flexion past 90 and hip External rotation. 6. PT according to my recommendations at follow up visit Kind regards, Dr. Ge Alexandra
[2017-01-28 05:30] LABS: HEMATOCRIT 33.4 % (38.0-47.0); HEMOGLOBIN 10.8 g/dL (12.6-16.3); MEAN CELL HEMOGLOBIN 31.8 pg (27.9-34.1); MEAN CELL HEMOGLOBIN CONCENTR. 32.3 g/dL (32.4-36.7); MEAN CELL VOLUME 98.2 fL (81.5-99.8); RED BLOOD CELL COUNT 3.4 10^6/uL (4.18-5.33); RED CELL DISTRIBUTION WIDTH 13.3 % (11.5-15.2)
[2017-01-28] MEDS: HYDROmorph 10MCG/ML&BUP 0.1% in 100ML NS EP SCH (05:43)
[2017-01-28 05:58] LABS: ANION GAP 6 mEq/L (8-16); CALCIUM 8.7 mg/dL (8.5-10.4); CARBON DIOXIDE 20 mEq/l (22-31); CHLORIDE 109 mEq/L (97-110); CREATININE 0.8 mg/dL (0.6-1.0); GLOMERULAR FILTRATION RATE > 60; GLUCOSE 82 mg/dL (70-100); POTASSIUM 4.8 mEq/L (3.5-5.2); SODIUM 135 mEq/L (134-144)
[2017-01-28] MEDS: REGARDING ANTICOAG MISC SCH (08:39)
[2017-01-28] MEDS: DC NARCS MISC SCH (08:39)
[2017-01-28] MEDS: buPROPion XL 150 MG TAB PO SCH (09:59)
[2017-01-28] MEDS: SENNOSIDES/DOCUSATE SODIUM TAB PO SCH ×2 (09:59→20:00)
[2017-01-28] MEDS: LEVONORGESTREL ETHIN ESTRADIOL PO SCH (10:42)
[2017-01-28] MEDS: NORETHINDRONE ACET 5 MG TAB PO SCH (10:48)
--- NOTE | 2017-01-28 11:48 | SOAPPROG ---
SOAP Progress Note Assessment/Plan: Assessment:POD #1 s/p L PHANI performed under GA. A lumbar epidural was placed for extended POPC. Overall, pt. doing well. Plan: Will increase epidural basal rate from 6 to 10 ml/hr and change the bolus from 4 to 3 ml q15. 01/28/17 11:45 Subjective: Pt. denies N/V, pruritus. Admits LLE completely pain free. c/o 7-8/10 pain at incisional site. admits difficulty sleeping last night because of the pain. Objective: Vital Signs Temp Pulse Resp BP Pulse Ox 36.4 C 83 18 109/64 98 01/28/17 11:41 01/28/17 11:41 01/28/17 11:41 01/28/17 11:41 01/28/17 11:41 Laboratory Results 01/28/17 04:45 01/28/17 04:45 01/27/17 01/28/17 01/29/17 05:59 05:59 05:59 Intake Total 2850 Output Total 2150 Balance 700 Physical Exam - Physical Exam General Appearance: WD/WN, alert, no apparent distress Neuro/Psych: normal mood/affect ICD10 Worksheet Patient Problems: Problems Problem Status Onset Pain Acute - ICD10 Problem Qualifiers (1) Pain
[2017-01-28] MEDS ORDERED: HYDROmorph 10MCG/ML&BUP 0.1% in 100ML NS EP SCH (13:00)
--- NOTE | 2017-01-28 14:03 | ASMTCMCOM ---
CM Note CM Note Notes: Pt had planned surgery for hip dysplasia, therapies to eval. CM to follow. Date Signed: 01/28/2017 02:03 PM Electronically Signed By:JAYASHREE Finch
--- NOTE | 2017-01-28 19:36 | SOAPPROG ---
SOAP Progress Note Assessment/Plan: Assessment: 1 day post op Left Periacetabular Osteotomy Plan: Start to wean down epidural tomorrow PT/OT transition to oral analgesics once epidural off Pelvis Xray on POD#3 01/28/17 19:33 Subjective: Susan had increased pain last night, anesthesia turned epidural up from 6 to 10 today and she is doing much better. She's been up to the side of bed and some ambulation with walker. She denies any cp or sob, no nausea but hasn't eaten much due to lack of appetite. Objective: Vital Signs Temp Pulse Resp BP Pulse Ox 36.9 C 102 H 16 114/62 93 01/28/17 19:22 01/28/17 19:22 01/28/17 19:22 01/28/17 19:22 01/28/17 19:22 Laboratory Results 01/28/17 04:45 01/28/17 04:45 01/27/17 01/28/17 01/29/17 05:59 05:59 05:59 Intake Total 2850 530 Output Total 2150 450 Balance 700 80 Well appearing in NAD H/H stable Left hip: dressings clean dry intact some edema NVI distally full ROM of foot and ankle ICD10 Worksheet Patient Problems: Problems Problem Status Onset Pain Acute
[2017-01-29] MEDS: ACETAMINOPHEN 325 MG TAB PO PRN ×2 (04:49→11:27)
[2017-01-29] MEDS: DIAZEPAM 2 MG TAB PO PRN ×2 (04:49→11:11)
[2017-01-29] MEDS ORDERED: HYDROmorphONE/DILAUDID 1 MG/ML INJ IVP PRN ×3 (08:08→09:10)
--- NOTE | 2017-01-29 08:28 | HOSPPROG ---
Hospitalist Progress Note Assessment/Plan: stat team called on Susan due to a pain crisis/ she is s/p a left periacetabular osteotomy. Her epidural became dislodged and wasn't working. I came by to help assess and care for her. Ordered 0.4 mg Dilaudid iv x 1. Anesthesia came by and they will aim to replace her epidural today. She is alert, oriented, crying, vss. Objective: Vital Signs Temp Pulse Resp BP Pulse Ox 36.8 C 94 14 107/60 94 01/29/17 04:00 01/29/17 06:00 01/29/17 06:00 01/29/17 06:00 01/29/17 06:00 Laboratory Results 01/28/17 04:45 01/28/17 04:45 01/28/17 01/29/17 01/30/17 05:59 05:59 05:59 Intake Total 2850 830 Output Total 2150 1100 Balance 700 -270 ICD10 Worksheet Patient Problems: Problems Problem Status Onset Pain Acute
[2017-01-29] MEDS ORDERED: HYDROmorphONE/DILAUDID 1 MG/ML INJ IVP ONE (08:30)
[2017-01-29] MEDS ORDERED: NALOXONE HCL 0.4 MG/ML INJ IVP PRN ×2 (08:53→15:28)
--- NOTE | 2017-01-29 08:59 | SOAPPROG ---
SOAP Progress Note Assessment/Plan: Assessment/PLAN: pt in severe pain POD #2 2/2 self-d/c of epidural catheter. will discuss possibility of replacing epidural vs. pain mgmt with IV meds. per patient, plan was to remove epidural later today. will manage in interim with dilaudid SUBCONTRACT ADMINISTRATOR. 01/29/17 08:59 Subjective: pt in severe pain POD #2 2/2 self-d/c of epidural catheter. will discuss possibility of replacing epidural vs. pain mgmt with IV meds. per patient, plan was to remove epidural later today. will manage in interim with SUBCONTRACT ADMINISTRATOR. Objective: Vital Signs Temp Pulse Resp BP Pulse Ox 36.8 C 94 14 107/60 94 01/29/17 04:00 01/29/17 06:00 01/29/17 06:00 01/29/17 06:00 01/29/17 06:00 Laboratory Results 01/28/17 04:45 01/28/17 04:45 01/28/17 01/29/17 01/30/17 05:59 05:59 05:59 Intake Total 2850 830 Output Total 2150 1100 Balance 700 -270 ICD10 Worksheet Patient Problems: Problems Problem Status Onset Pain Acute
[2017-01-29] MEDS ORDERED: oxyCODONE IR 15 MG TAB PO SCH (10:00)
[2017-01-29] MEDS: oxyCODONE IR 5 MG TAB PO SCH ×6 (10:49→22:09)
[2017-01-29] MEDS: HYDROmorphONE/DILAUDID 1 MG/ML INJ IVP PRN ×3 (11:00→14:33)
[2017-01-29] MEDS: buPROPion XL 150 MG TAB PO SCH (11:14)
[2017-01-29] MEDS: SENNOSIDES/DOCUSATE SODIUM TAB PO SCH ×2 (11:14→22:09)
[2017-01-29] MEDS: NORETHINDRONE ACET 5 MG TAB PO SCH (11:15)
[2017-01-29] MEDS: LEVONORGESTREL ETHIN ESTRADIOL PO SCH (11:33)
[2017-01-29] MEDS: DC NARCS MISC SCH (11:43)
[2017-01-29] MEDS: REGARDING ANTICOAG MISC SCH (11:43)
[2017-01-29] MEDS ORDERED: DIAZEPAM 10 MG/2 ML SYR ONE (14:35)
[2017-01-29] MEDS: DIAZEPAM 10 MG/2 ML SYR IVP PRN ×2 (14:49→15:32)
[2017-01-29] MEDS ORDERED: HYDROmorphONE/DILAUDID 6 MG/30 ML PCA IV PRN (15:28)
[2017-01-29] MEDS: ASPIRIN EC 81 MG TAB PO SCH (16:16)
[2017-01-29] MEDS ORDERED: BUPIVACAINE 0.25% 30 ML SDV ONE (20:04)
--- NOTE | 2017-01-29 20:25 | PDANEPAE ---
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 Dr. Alexandra requests pt eval for possible DEIRDRE placement ANE Past Medical History - Cardiovascular History Hx Hypertension: No Hx Arrhythmias: No Hx Chest Pain: No Hx Coronary Artery / Peripheral Vascular Disease: No Hx CHF / Valvular Disease: No Hx Palpitations: No - Pulmonary History Hx COPD: No Hx Asthma/Reactive Airway Disease: Yes Hx Recent Upper Respiratory Infection: No Hx Oxygen in Use at Home: No Hx Sleep Apnea: No Sleep Apnea Screening Result - Last Documented: Negative Pulmonary History Comment: EXERCISE INDUCED ASTHMA IN PAST - Neurologic History Hx Cerebrovascular Accident: No Hx Seizures: No Hx Dementia: No - Endocrine History Hx Diabetes: No Hypothyroid: No Hyperthyroid: No Obesity: no - Renal History Hx Renal Disorders: No - Liver History Hx Hepatic Disorders: No - Neurological & Psychiatric Hx Hx Neurological and Psychiatric Disorders: No - Cancer History Hx Cancer: No - Congenital Disorder History Hx Congenital Disorders: No - GI History GERD: no Hx Gastrointestinal Disorders: No - Other Health History Other Health History: wears glasses - Chronic Pain History Chronic Pain: Yes (left hip pain) - Surgical History Prior Surgeries: 01/20/17 left hip arthroscopy and labral repair with Ibrahima. 04/09/16 right hip arthroscopy and labral repair with Ibrahima. WISDOM TEETH. TONSILLECTOMY. SALPINGO-OOPHERECTOMY L. LAPAROSCOPIC OVARIAN PROC ANE Review of Systems Review of Systems: - Exercise capacity METS (RN): 4 METS ANE Patient History - Allergies Allergies/Adverse Reactions: No Known Allergies Allergy (Verified 12/19/16 11:35) - Home Medications Home Medications: Norethindrone Acetate [Aygestin] 5 mg PO DAILY 12/19/16 [Last Taken Unknown] buPROPion XL [Wellbutrin 150mg XL] 300 mg PO DAILY 12/19/16 [Last Taken Unknown] Levonorgestrel-Ethin Estradiol [Lessina-28 Tablet] 1 each PO DAILY 01/14/17 [ Last Taken Unknown] Melatonin [Melatonin 3 MG (*)] 3 mg PO HS PRN 01/14/17 [Last Taken Unknown] - NPO status NPO Since - Liquids (Date): 01/26/17 NPO Since - Liquids (Time): 21:00 NPO Since - Solids (Date): 01/26/17 NPO Since - Solids (Time): 21:00 - Smoking Hx Smoking Status: Light smoker - Family Anes Hx Family Hx Anesthesia Complications: none ANE Labs/Vital Signs - Labs Result Diagrams: 01/28/17 04:45 01/28/17 04:45 - Vital Signs Blood Pressure: 133/77 Heart Rate: 112 Respiratory Rate: 14 O2 Sat (%): 90 Height: 5 ft 7 in Weight: 77.111 kg ANE Anesthesia Plan Anesthesia Plan: epidural
[2017-01-29] MEDS: HYDROmorph 10MCG/ML&BUP 0.1% in 100ML NS EP SCH (21:00)
--- NOTE | 2017-01-29 22:13 | POSTANESTH ---
Post Anesthetic Evaluation Cardiovascular Status: Normal, Stable Respiratory Status: Normal, Stable Level of Consciousness/Mental Status: Can Participate in Eval Pain Control: Adequate, Prn Tx Ordered Nausea/Vomiting Control: Adequate, Prn Tx Ordered (comfortable s/p candelaria)
[2017-01-30] MEDS: HYDROmorph 10MCG/ML&BUP 0.1% in 100ML NS EP SCH ×5 (00:17→23:21)
[2017-01-30] MEDS: oxyCODONE IR 5 MG TAB PO SCH ×6 (00:21→22:52)
[2017-01-30] MEDS: buPROPion XL 150 MG TAB PO SCH (09:44)
[2017-01-30] MEDS: ASPIRIN EC 81 MG TAB PO SCH (09:44)
[2017-01-30] MEDS: LEVONORGESTREL ETHIN ESTRADIOL PO SCH (09:45)
[2017-01-30] MEDS: SENNOSIDES/DOCUSATE SODIUM TAB PO SCH ×2 (09:46→22:52)
[2017-01-30] MEDS: NORETHINDRONE ACET 5 MG TAB PO SCH (09:49)
--- NOTE | 2017-01-30 09:49 | SOAPPROG ---
JOLIE Progress Note Assessment/Plan: Assessment: Plan: 01/30/17 09:46 POD 2, 01/29 7pm Spend 40 minutes with patient discussing and managing her pain due to epidural which accidently came out. We were not managed to control her pain with IV/PO so went on and introduced a new epidural. This worked well thus far. Will do XR today Dr Alexandra Objective: Vital Signs Temp Pulse Resp BP Pulse Ox 36.8 C 87 16 111/97 H 97 01/30/17 08:00 01/30/17 08:00 01/30/17 08:00 01/30/17 08:00 01/30/17 08:00 Laboratory Results 01/28/17 04:45 01/28/17 04:45 01/29/17 01/30/17 01/31/17 05:59 05:59 05:59 Intake Total 830 Output Total 1100 925 Xdwdgkm -458 -929 ICD10 Worksheet Patient Problems: Problems Problem Status Onset Pain Acute
[2017-01-30] MEDS: SCOPOLAMINE HYDROBROMIDE 1 MG/3 DAYS PATCH TD SCH (09:51)
[2017-01-30] MEDS: PATCH REMOVAL 1 EA PATCH TD SCH (09:55)
[2017-01-30] MEDS: DIAZEPAM 2 MG TAB PO PRN ×2 (10:12→16:41)
--- NOTE | 2017-01-30 11:28 | SOAPPROG ---
JOLIE Progress Note Assessment/Plan: Assessment: Plan: 01/30/17 11:27 Good pain control with DEIRDRE, will continue with no change for today. Objective: Vital Signs Temp Pulse Resp BP Pulse Ox 36.4 C 87 16 110/78 98 01/30/17 09:56 01/30/17 09:56 01/30/17 09:56 01/30/17 09:56 01/30/17 09:56 Laboratory Results 01/28/17 04:45 01/28/17 04:45 01/29/17 01/30/17 01/31/17 05:59 05:59 05:59 Intake Total 830 Output Total 1100 925 Balance -270 -925 ICD10 Worksheet Patient Problems: Problems Problem Status Onset Pain Acute
[2017-01-30] MEDS: ACETAMINOPHEN 325 MG TAB PO PRN (22:52)
[2017-01-30] MEDS: DIAZEPAM 10 MG/2 ML SYR IVP PRN (22:53)
[2017-01-31] MEDS: oxyCODONE IR 5 MG TAB PO SCH ×6 (02:19→21:50)
[2017-01-31] MEDS: DIAZEPAM 2 MG TAB PO PRN ×2 (02:19→08:28)
--- NOTE | 2017-01-31 08:26 | SOAPPROG ---
SOAP Progress Note Assessment/Plan: Assessment: Plan: 01/30/17 11:27 Good pain control with DEIRDRE, will continue with no change for today. 01/31/17 08:23 good pain control through the night, DEIRDRE off but intact this morning, pt still comfortable with a level. Receiving PO/IV pain meds, if comfortable w/o DEIRDRE will d/c later today Objective: Vital Signs Temp Pulse Resp BP Pulse Ox 36.8 C 122 H 16 128/92 H 98 01/31/17 07:25 01/31/17 07:25 01/31/17 07:25 01/31/17 07:25 01/31/17 07:25 Laboratory Results 01/28/17 04:45 01/28/17 04:45 01/30/17 01/31/17 02/01/17 05:59 05:59 05:59 Intake Total 900 Output Total 774 1125 Balance -925 -225 ICD10 Worksheet Patient Problems: Problems Problem Status Onset Pain Acute
[2017-01-31] MEDS: SENNOSIDES/DOCUSATE SODIUM TAB PO SCH ×2 (08:28→21:50)
[2017-01-31] MEDS: ASPIRIN EC 81 MG TAB PO SCH (08:29)
[2017-01-31] MEDS: NORETHINDRONE ACET 5 MG TAB PO SCH (08:29)
[2017-01-31] MEDS: LEVONORGESTREL ETHIN ESTRADIOL PO SCH (08:30)
[2017-01-31] MEDS: HYDROmorphONE/DILAUDID 1 MG/ML INJ IVP PRN ×3 (08:31→16:13)
--- NOTE | 2017-01-31 10:01 | SOAPPROG ---
SOAP Progress Note Assessment/Plan: Assessment: 3rd day post op Left Periacetabular Osteotomy Plan: Epidural to be turned off tomorrow transition to orals and IVP dilaudid Valium for muscle spasms home in day or two 01/28/17 19:33 01/31/17 09:58 Subjective: Susan was seen last night at 1830. Upon entering room, she was visibly upset. She recounted the events of the day to me. She reported being well pain controlled with epidural, denied nausea, cp or sob. Objective: Vital Signs Temp Pulse Resp BP Pulse Ox 36.8 C 122 H 16 128/92 H 98 01/31/17 07:25 01/31/17 07:25 01/31/17 07:25 01/31/17 07:25 01/31/17 07:25 Laboratory Results 01/28/17 04:45 01/28/17 04:45 01/30/17 01/31/17 02/01/17 05:59 05:59 05:59 Intake Total 900 Output Total 920 1125 Balance -925 -225 Left hip: dressings clean dry intact some edema NVI distally full ROM of foot and ankle - Pending Discharge Pending Discharge Within 48 Hours: Yes Pending Discharge Date: 02/02/17 Pending Discharge Time: 11:00 ICD10 Worksheet Patient Problems: Problems Problem Status Onset Pain Acute
[2017-01-31] MEDS: buPROPion XL 150 MG TAB PO SCH (10:12)
[2017-01-31] MEDS: DIAZEPAM 5 MG TAB PO PRN ×2 (14:36→21:50)
--- NOTE | 2017-01-31 15:37 | ASMTCMCOM ---
CM Note CM Note Notes: OT/PT rec home vs HHC depending on pt progress. Pt likely d/c in 1-2 days. CM to follow. Date Signed: 01/31/2017 03:36 PM Electronically Signed By:JAYASHREE Finch
[2017-02-01] MEDS: oxyCODONE IR 5 MG TAB PO SCH ×6 (02:02→21:42)
[2017-02-01] MEDS: DIAZEPAM 5 MG TAB PO PRN ×3 (06:19→21:42)
[2017-02-01] MEDS: MAGNESIUM HYDROXIDE 30 ML UDCUP PO PRN (10:07)
[2017-02-01] MEDS: NORETHINDRONE ACET 5 MG TAB PO SCH (10:08)
[2017-02-01] MEDS: SENNOSIDES/DOCUSATE SODIUM TAB PO SCH ×2 (10:08→21:42)
[2017-02-01] MEDS: ASPIRIN EC 81 MG TAB PO SCH (10:09)
[2017-02-01] MEDS: buPROPion XL 150 MG TAB PO SCH (10:09)
[2017-02-01] MEDS: ACETAMINOPHEN 325 MG TAB PO PRN (14:27)
[2017-02-01] MEDS: LEVONORGESTREL ETHIN ESTRADIOL PO SCH (15:58)
--- NOTE | 2017-02-02 00:05 | SOAPPROG ---
SOAP Progress Note Assessment/Plan: Assessment: Plan: 01/30/17 09:46 POD 2, 01/29 7pm Spend 40 minutes with patient discussing and managing her pain due to epidural which accidently came out. We were not managed to control her pain with IV/PO so went on and introduced a new epidural. This worked well thus far. Will do XR today Dr Alexandra 02/02/17 00:03 POD 5 doing well after epi-folly out, pain controlled. NV intact, SCD work well, moving around, working with PT/OT, feels confident. Discussed next steps and precautions. Getting ready for discharge Dr Alexandra Objective: Vital Signs Temp Pulse Resp BP Pulse Ox 36.1 C 116 H 18 116/65 97 02/01/17 20:00 02/01/17 20:00 02/01/17 20:00 02/01/17 20:00 02/01/17 20:00 Laboratory Results 01/28/17 04:45 01/28/17 04:45 01/31/17 02/01/17 02/02/17 05:59 05:59 05:59 Intake Total 900 Output Total 1125 300 500 Balance -225 -300 -500 ICD10 Worksheet Patient Problems: Problems Problem Status Onset Pain Acute
[2017-02-02] MEDS: oxyCODONE IR 5 MG TAB PO SCH ×4 (02:01→13:58)
[2017-02-02] MEDS: DIAZEPAM 5 MG TAB PO PRN (05:53)
[2017-02-02] MEDS: MAGNESIUM HYDROXIDE 30 ML UDCUP PO PRN (05:54)
[2017-02-02] MEDS: LEVONORGESTREL ETHIN ESTRADIOL PO SCH (09:16)
[2017-02-02] MEDS: SCOPOLAMINE HYDROBROMIDE 1 MG/3 DAYS PATCH TD SCH (09:16)
[2017-02-02] MEDS: SENNOSIDES/DOCUSATE SODIUM TAB PO SCH (09:16)
[2017-02-02] MEDS: buPROPion XL 150 MG TAB PO SCH (09:17)
[2017-02-02] MEDS: NORETHINDRONE ACET 5 MG TAB PO SCH (09:17)
[2017-02-02] MEDS: ASPIRIN EC 81 MG TAB PO SCH (09:17)
[2017-02-02] MEDS: PATCH REMOVAL 1 EA PATCH TD SCH (09:39)
[2017-02-02 11:28] VITALS: BP 124/80; PULSE 106; RESP 17; TEMP 97.3; O2SAT 96
--- NOTE | 2017-02-02 12:14 | SOAPPROG ---
JOLIE Progress Note Assessment/Plan: Assessment: 6th day post op Left Periacetabular Osteotomy Plan: D/C home 81ASA 1 month plus SCDs 24/7 2weeks then only at night for 1 week for DVT prophalaxis F/U with Dr. Alexandra in 2 weeks Non weight bearing LLE 01/28/17 19:33 01/31/17 09:58 02/02/17 12:11 Subjective: Susan is doing quite well this morning and is ready to go home. Pain well managed with oral analgesics, no nausea, cp or sob. Objective: Vital Signs Temp Pulse Resp BP Pulse Ox 36.3 C 106 H 17 124/80 H 96 02/02/17 11:25 02/02/17 11:25 02/02/17 11:25 02/02/17 11:25 02/02/17 11:25 Laboratory Results 01/28/17 04:45 01/28/17 04:45 02/01/17 02/02/17 02/03/17 05:59 05:59 05:59 Intake Total 1000 Output Total 300 500 Balance -300 500 Well appearing in NAD Left hip: dressings clean dry intact some edema NVI distally Full ROM of foot and ankle - Pending Discharge Pending Discharge Within 24 Hours: Yes Pending Discharge Date: 02/03/17 Pending Discharge Time: 11:00 ICD10 Worksheet Patient Problems: Problems Problem Status Onset Pain Acute
[2017-02-02] MEDS: ACETAMINOPHEN 325 MG TAB PO PRN (13:59)
--- NOTE | 2017-02-03 14:20 | ASDISCHSUM ---
Discharge Information Plan Status:Home with No Needs Medically Cleared to Leave:02/02/2017 Discharge Date:02/02/2017 02:15 PM CM D/C Disposition:Home, Routine, Self-Care ADT D/C Disposition:Home, Routine, Self-Care Projected Discharge Date:02/02/2017 12:00 AM Transportation at D/C:Family Discharge Delay Reason: Follow-Up Date:02/02/2017 12:00 AM Discharge Slot: Final Diagnosis: Placement Information Patient Contact Information Contact Name:ROCHELLE Relationship:Mother Address: Work Phone: City: [facility] Phone: State/[place] Sort Code: Email: Financial Information Financial Class: Primary Plan Desc:[employer] [place] Primary Plan Number:[id number] Secondary Plan Desc: Secondary Plan Number: Assessment Information [facility] CM Progress Note CM Note CM Note Notes: Pt had planned surgery for hip dysplasia, therapies to eval. CM to follow. Date Signed: 01/28/2017 02:03 PM Electronically Signed By:JAYASHREE Finch [facility] CM Progress Note CM Note CM Note Notes: OT/PT rec home vs HHC depending on pt progress. Pt likely d/c in 1-2 days. CM to follow. Date Signed: 01/31/2017 03:36 PM Electronically Signed By:JAYASHREE Finch Intervention Information
== END 2017-02-02 14:15 | disposition home or self-care (01) | DRG 481 ==
LOC: F3N 06:42
PROVIDERS: ADMIT Orthopaedic Surgery Sports Medicine; ATTEND Orthopaedic Surgery Sports Medicine
PROC: 0SSB04Z Reposition Left Hip Joint with Internal Fixation Device, Open Approach (ICD-10-PCS; principal; 2017-01-27 08:15)
PROC: 0Q830ZZ Division of Left Pelvic Bone, Open Approach (ICD-10-PCS; principal; 2017-01-27 08:15)
PROC: 3E0S3BZ Introduction of Anesthetic Agent into Epidural Space, Percutaneous Approach (ICD-10-PCS; 2017-01-29)
DX: M25.852 Other specified joint disorders, left hip (principal); Q65.89 Other specified congenital deformities of hip; M25.851 Other specified joint disorders, right hip; T85.625A Displacement of other nervous system device, implant or graft, initial encounter; Y70.1 Therapeutic (nonsurgical) and rehabilitative anesthesiology devices associated with adverse incidents
CPT/HCPCS: 97116-GP; 97162-GP; 97165-GO; 97530-GO; 97530-GP; 97535-GO; C1713; J0690; J1100; J1170; J2250; J2370; J2405; J2704; J2795; J3010